=== PATIENT | male | born 1985 | race Two or more races ===

== ENCOUNTER 2021-11-27 12:53 | Outpatient (REF) | payer OTHER, SELFPAY ==
--- NOTE | ~2021-11-27 | US_ITS ---
EXAMINATION: US RETROPERITONEAL LIMITED (RENAL ONLY) CLINICAL INFORMATION: Left flank pain, dysuria. COMPARISON: None. TECHNIQUE: Routine retroperitoneal ultrasound of the kidneys was performed. FINDINGS: RIGHT KIDNEY: 13.0 x 5.4 x 5.4 cm (SAG x AP x TRV). The kidney is normal in size, contour, and echogenicity. Renal cortical thickness is normal. No calculi or focal parenchymal lesions. No hydronephrosis. LEFT KIDNEY: 13.9 x 5.7 x 5.8 cm (SAG x AP x TRV). The kidney is normal in size, contour, and echogenicity. Renal cortical thickness is normal. No calculi or focal parenchymal lesions. There is mild hydronephrosis of unknown etiology. BLADDER: There are normal bilateral ureteral jets. No bladder wall thickening seen. US/US renal BI IMPRESSION: Mild left hydronephrosis with no etiology found. Normal bilateral ureteral jets seen in the bladder. No echogenic renal calculi or hydronephrosis.
== END 2021-11-27 12:54 | disposition home or self-care (01) ==
LOC: HO.HMGCX 12:53
PROVIDERS: Visit Provider Nurse Practitioner
DX: R30.0 Dysuria (principal); R10.9 Unspecified abdominal pain
CPT/HCPCS: 76775

== ENCOUNTER 2024-10-24 10:31 | Emergency (ER) | payer OTHER, SELFPAY ==
--- NOTE | ~2024-10-24 | CT_ITS ---
CLINICAL HISTORY: RLQ tenderness CT abdomen and pelvis with contrast Comparison: None Findings: The lung bases are clear. The liver is enlarged at 23 cm and mildly low in attenuation. The gallbladder is unremarkable. The spleen, splenule, adrenal glands and pancreas are within normal limits. Kidneys exhibit mild fullness of the collecting systems bilaterally and of the left extrarenal pelvis. There is no urinary calculus identified. The bladder is significantly distended. The prostate gland is not significantly enlarged. Normal appendix. No bowel obstruction or free air. Extensive diverticulosis. No convincing evidence of diverticulitis. No acute osseous finding. Impression: Diverticulosis without diverticulitis. Normal appendix. No definite acute process. Hepatic steatosis and hepatomegaly. The fullness in the renal collecting systems likely relates to the significantly distended bladder. This document has been electronically signed by: Domenico Carbone MD on 10/24/2024 13:50:15
[2024-10-24 10:42] VITALS: BP 161/102; PULSE 112; RESP 18; TEMP 36.8; O2SAT 96; BMI 31.5
[2024-10-24 11:12] LABS: Basophils Absolute Auto 0.1 X10*3/uL (0.0-0.2); Basophils Percent Auto 0.9 % (0-2); Eosinophils Absolute Auto 0.6 X10*3/uL (0.0-0.4); Eosinophils Percent Auto 7.6 % (0-4); Hematocrit 46.3 % (42.0-52.0); Hemoglobin 16.6 g/dl (14.0-18.0); Imm Gran Abs Auto 0.04 X10*3/uL (0.00-0.03); Imm Gran Pct Auto 0.5 % (0.0-0.4); Lymphocytes Absolute Auto 2.4 X10*3/uL (1.2-4.9); Lymphocytes Percent Auto 31.5 % (20-40); MANUAL DIFF FLAG NO; Mean Corpuscular HGB Conc 35.9 g/dl (31.0-36.0); Mean Corpuscular Hemoglobin 31.1 pg (27.0-33.0); Mean Corpuscular Volume 86.9 fL (80.0-98.0); Mean Platelet Volume 9.8 fL (9.4-12.4); Monocytes Absolute Auto 0.4 X10*3/uL (0.1-1.2); Monocytes Percent Auto 5.7 % (2-11); Neutrophils Absolute Auto 4.1 x10*3/uL (2.0-8.3); Neutrophils Percent Auto 53.8 % (45-73); Platelet Count 215 X10*3/uL (160-400); Red Blood Count 5.33 X10*6/uL (4.60-5.80); Red Cell Distribution Width 11.2 % (11.0-16.0); White Blood Count 7.6 X10*3/uL (4.8-10.8)
[2024-10-24 11:14] LABS: Appearance Urine Clear; Color Urine Yellow; Glucose Urine UA >=1000 mg/dL (Negative); Leukocyte Esterase Urine Negative (Negative); Nitrite Urine Negative (Negative); PH 5.5 (5.0-9.0); Specific Gravity - Urine 1.025 (1.005-1.025); UMIC TRIGGER UACC YES; Urine Blood Negative (Negative); Urine Ketones Negative (Negative); Urine Protein 30 (1+) mg/dL (Neg-Trace)
--- NOTE | 2024-10-24 11:15 | ED.GENADULT ---
HPI - General Adult General Chief complaint: Abdominal Pain Stated complaint: abd pain Time Seen by Provider: 10/24/24 11:13 Source: patient, RN notes reviewed and old records reviewed Mode of arrival: ambulatory Limitations: no limitations History of Present Illness ED Provider: [facility] narrative: Patient is a 39-year-old male with history of HTN, did not take BP med this am, presenting to the ED with complaint of colicky right lower quadrant abdominal pain for the past week. States at times pain radiates to back, and left lower quadrant of abdomen. Has had a few episodes of nonbloody, nonbilious vomiting. Denies diarrhea or constipation. Does report some difficulty urinating at times, has not noted any hematuria. Subjective fevers. MD complaint: abdominal pain Onset (ago): week(s) Location: abdomen Radiation: back Severity: severe Pain Consistency: colicky Associated symptoms: nausea/vomiting Related Data Previous Rx's ?Medication ?Instructions ?Recorded sennosides 8.6 mg-docusate sodium 1 tab-cap PO BEDTIME #14 tabs 10/24/24 50 mg tablet Allergies Allergy/AdvReac Type Severity Reaction Status Date / Time No Known Allergies Allergy Verified 10/24/24 10:44 Review of Systems Review of Systems: As per HPI Yes all other systems are reviewed and are negative Constitutional: Constitutional: Reports as per HPI [facility] Social History Social History Advance Directives: No Advance Directives Information Provided: Yes Physical Exam ED Vital Signs: Vital Signs - 24 hr 10/24/24 10:42 10/24/24 12:22 Temperature 98.3 F Pulse Rate 112 H Respiratory Rate 18 18 Blood Pressure 161/102 H Pulse Oximetry 96 Oxygen Delivery Method Room Air BMI result Body Mass Index 31.5 Vital signs have been reviewed and appear to be correct. Blood pressure elevated. Heart rate mildly tachycardic. Respiratory rate normal. Temperature normal. Oxygen saturation normal. Const General: cooperative, healthy appearing and no acute distress Orientation/consciousness: oriented to person, oriented to place, oriented to time and patient oriented x3 Limitations: no limitations HENMT Head: Yes normocephalic and Yes atraumatic Ears: external ears normal General nose exam: Normal external nose present Face and sinus: Yes face symmetric Mouth: oropharynx normal and moist mucous membranes Throat: Yes uvula midline Eyes Pupils: Equal, round and reactive pupils present Neck Neck: Yes normal visual inspection and Yes supple Resp Effort & Inspection: normal respiratory effort and able to speak in complete sentences Auscultation: clear to auscultation bilaterally Cardio Rate: regular rate Rhythm: regular rhythm Heart sounds: S1 normal heart sound present and S2 normal heart sound present GI Palpation (GI): Soft to palpation and nontender Auscultation: normoactive bowel sounds General: Yes no CVA tenderness Back/Spine/Pelvis Back: no CVA tenderness Skin General skin exam: elasticity normal and turgor normal Neuro General: oriented to person, oriented to place, oriented to time, patient oriented x3, moves all extremities, no focal motor deficits and CN's II-XI intact bilaterally Cranial nerves: Yes Equal, round and reactive pupils present Cognition (Neuro): normal cognition Extrem General: Yes full ROM, Yes no pedal edema and Yes no calf tenderness Psych Mental Status: mental status grossly normal Affect: normal affect Thought process: Normal thought process present Medications Administered Discontinued Medications Generic Name Dose Route Start Last Admin Trade Name Juanq PRN Reason Stop Dose Admin Sodium Chloride 1,000 mls @ 999 mls/hr 10/24/24 11:30 10/24/24 13:20 Ns IV 10/24/24 12:30 Infused .Q1H1M MONIQUE Infusion Iohexol 100 ml 10/24/24 12:39 10/24/24 12:39 Iohexol 350 Mg/Ml 100 Ml Infus..Btl IV 10/24/24 12:40 85 ml ONCE ONE Administration Morphine Sulfate 4 mg 10/24/24 11:30 10/24/24 12:22 Morphine Sulfate 4 Mg/Ml Cartridge IVPUSH 10/24/24 11:31 4 mg ONCE ONE Administration Protocol Ondansetron HCl 4 mg 10/24/24 11:30 10/24/24 12:23 Ondansetron Hcl 4 Mg/2 Ml Vial IVPUSH 10/24/24 11:31 4 mg ONCE ONE Administration Medical Decision Making Medical Decision Making MDM Narrative: Patient is a 39-year-old male with history of HTN, did not take BP med this am, presenting to the ED with complaint of colicky right lower quadrant abdominal pain for the past week. On exam patient is awake, A+Ox3, BP elevated, did not take BP med today, slightly tachycardic, VS otherwise WNL, afebrile, normal neurological exam without focal deficits, physical exam findings as above. Given reported symptoms and physical exam findings, initial differential includes but is not limited to appendicitis, UTI/pyelonephritis, obstructing calculi, hydronephrosis. Labs notable for no leukocytosis, no anemia, hyperglycemia without anion gap, elevated transaminases with normal Tbili. Urinalysis is without evidence of infection, no blood noted. CT notable for diverticulosis without diverticulitis, fullness in renal collecting system and distended bladder. My interpretation is in agreement with the radiologist's interpretation. Bladder scan obtained pre and post void, patient does not appear to be retaining urine. Moderate amount of stool noted, will send prescription for docu-senna. Follow up with PCP. Return precautions discussed at bedside. Patient verbalized understanding of and agreement with plan. Differential Diagnosis Differential Diagnoses: The differential diagnosis associated with the presentation includes as per [facility] Admission/Observation Consideration of admission/observation: Escalation of care including admission/observation considered Patient would have been admitted to the hospital had their work up had any findings where hospital admission was appropriate and their clinical presentation warranted hospital admission. Lab Data [facility] Lab Attestation statement: I reviewed the patient's lab results. as per [facility] 10/24/24 11:01 10/24/24 11:01 Labs: Lab Results 10/24/24 Range/Units 11:01 WBC 7.6 (4.8-10.8) X10*3/uL RBC 5.33 (4.60-5.80) X10*6/uL Hgb 16.6 (14.0-18.0) g/dl Hct 46.3 (42.0-52.0) % MCV 86.9 (80.0-98.0) fL MCH 31.1 (27.0-33.0) pg MCHC 35.9 (31.0-36.0) g/dl RDW 11.2 (11.0-16.0) % Plt Count 215 (160-400) X10*3/uL MPV 9.8 (9.4-12.4) fL Immature Gran % (Auto) 0.5 H (0.0-0.4) % Neut % (Auto) 53.8 (45-73) % Lymph % (Auto) 31.5 (20-40) % [place] % (Auto) 5.7 (2-11) % Eos % (Auto) 7.6 H (0-4) % Baso % (Auto) 0.9 (0-2) % Lymph # (Auto) 2.4 (1.2-4.9) X10*3/uL [place] # (Auto) 0.4 (0.1-1.2) X10*3/uL Eos # (Auto) 0.6 H (0.0-0.4) X10*3/uL Baso # (Auto) 0.1 (0.0-0.2) X10*3/uL Abs Immat Gran (auto) 0.04 H (0.00-0.03) X10*3/uL Absolute Neuts (auto) 4.1 (2.0-8.3) x10*3/uL Absolute Nucleated RBC 0.000 (0.0-0.012) X10*3/uL Nucleated RBC % (auto) 0.0 (0.0-0.2) /100WBC Sodium 135 (135-145) mmol/L Potassium 4.0 (3.3-5.1) mmol/L Chloride 101 (96-108) mmol/L Carbon Dioxide 23 (22-29) mmol/L Anion Gap 15 (12-20) BUN 14 (9-16) mg/dL Creatinine 0.82 (0.5-1.4) mg/dL Estim Creat Clear Calc 123.1 Estimated GFR > 60 Random Glucose 351 H* (60-115) mg/dL Calcium 9.7 (8.4-10.2) mg/dL Magnesium 2.0 (1.6-2.6) mg/dL Total Bilirubin 0.6 (0.0-1.0) mg/dL AST 49 H (5-37) U/L ALT 121 H (0-40) U/L Alkaline Phosphatase 93 (39-117) U/L Total Protein 8.3 H (6.5-8.0) g/dL Albumin 4.5 (3.5-5.0) g/dL Lipase 25 (8-78) U/L Urine Color Yellow Urine Appearance Clear Urine pH 5.5 (5.0-9.0) Ur Specific [place] 1.025 (1.005-1.025) Urine Protein 30 (1+) H (Neg-Trace) mg/dL Urine Glucose (UA) >=1000 H (Negative) mg/dL Urine Ketones Negative (Negative) mg/dL Urine Blood Negative (Negative) Urine Nitrite Negative (Negative) Ur Leukocyte Esterase Negative (Negative) Urine RBC 0-2 (0-2) /HPF Urine WBC 0-5 (0-5) /HPF Ur Squamous Epith Cells 0-2 (0-2) /HPF Urine Bacteria None Seen (None Seen) Hyaline Casts 0-2 (0-2) /LPF Independent Interpretation I performed an independent interpretation of an: CT Scan Interpretation: CT notable for diverticulosis without diverticulitis, fullness in renal collecting system and distended bladder. No evidence of appendicitis or obstructing calculi Radiology Impression Discussion of test interpretation with radiology: I have reviewed the radiologist's reading. Radiologist Impression: CT abdomen and pelvis with contrast Comparison: None Findings: The lung bases are clear. The liver is enlarged at 23 cm and mildly low in attenuation. The gallbladder is unremarkable. The spleen, splenule, adrenal glands and pancreas are within normal limits. Kidneys exhibit mild fullness of the collecting systems bilaterally and of the left extrarenal pelvis. There is no urinary calculus identified. The bladder is significantly distended. The prostate gland is not significantly enlarged. Normal appendix. No bowel obstruction or free air. Extensive diverticulosis. No convincing evidence of diverticulitis. No acute osseous finding. Impression: Diverticulosis without diverticulitis. Normal appendix. No definite acute process. Hepatic steatosis and hepatomegaly. The fullness in the renal collecting systems likely relates to the significantly distended bladder. Independent Historian Clinical information obtained from an independent historian. History obtained from or confirmed by: Other Discharge Plan Discharge Clinical Impression: Constipation, Abdominal pain Patient Disposition: Home, Self-Care Instructions: Constipation (DC), Abdominal Pain (ED) Additional Instructions: You have been evaluated in the emergency department today for abdominal pain. Your evaluation did not show evidence of medical conditions requiring emergent intervention at this time. Your CT scan did show a moderate amount of stool in your colon, you are being prescribed medication for this, take as prescribed. Please schedule an appointment with your primary care physician. Return to the emergency department if you experience worsening or uncontrolled pain, fevers 100.4? F or greater, recurrent vomiting, inability to tolerate food or fluids by mouth, bloody stools or vomit, black or tarry stools, or any other concerning symptoms. Prescriptions: New sennosides-docusate sodium 8.6-50 mg tablet 1 tab-cap PO BEDTIME Qty: 14 0RF Referrals: [facility] [place] [facility] [Provider Group] [facility] [place] Primary Care, Juan Diego [Provider Group] [facility] [place] Primary Care,Erin [Provider Group] [facility] [place] [facility] [Provider Group] Print Language: Monegasque
[2024-10-24 11:17] LABS: Bacteria Urine None Seen (None Seen); Hyaline Casts Urine 0-2 /LPF (0-2); RBC Urine 0-2 /HPF (0-2); Squamous Epithelial Cell Urine 0-2 /HPF (0-2); WBC Urine 0-5 /HPF (0-5)
[2024-10-24 11:34] LABS: Alanine Aminotransferase 121 U/L (0-40); Albumin Level 4.5 g/dL (3.5-5.0); Alkaline Phosphatase 93 U/L (39-117); Anion Gap 15 (12-20); Aspartate Amino Transferase 49 U/L (5-37); Bilirubin Total 0.6 mg/dL (0.0-1.0); Blood Urea Nitrogen 14 mg/dL (9-16); Calcium 9.7 mg/dL (8.4-10.2); Carbon Dioxide 23 mmol/L (22-29); Chloride 101 mmol/L (96-108); Creatinine Clr Calc Pharmacy 123.1; Estimated Glomerular Filt Rate > 60; Glucose Random 351 mg/dL (60-115); Lipase 25 U/L (8-78); Sodium 135 mmol/L (135-145); Total Protein 8.3 g/dL (6.5-8.0)
[2024-10-24] MEDS: 0.9 % Sodium Chloride 1,000 ML 999 ML IV (12:19)
[2024-10-24 12:22] VITALS: RESP 18
[2024-10-24] MEDS: Morphine Sulfate 4 MG/ML CARTRIDGE IVPUSH (12:22)
[2024-10-24] MEDS: ondansetron HCL 4 MG/2 ML VIAL IVPUSH (12:23)
[2024-10-24] MEDS: iohexoL 350 MG/ML 100 ML INFUS..BTL IV (12:39)
[2024-10-24 15:51] VITALS: BP 112/72; PULSE 82; RESP 18; TEMP 36.8; O2SAT 97
== END 2024-10-24 15:52 | disposition home or self-care (01) ==
PROVIDERS: Emergency Provider Emergency Medicine
DX: K59.00 Constipation, unspecified (principal); R10.2 Pelvic and perineal pain; R11.2 Nausea with vomiting, unspecified; Z79.899 Other long term (current) drug therapy
CPT/HCPCS: 36415; 74177; 80053; 81001; 83690; 83735; 85025; 96361; 96374; 96375; 99284; J2270; J2405; Q9967

== ENCOUNTER → 2024-10-24 11:30 | Outpatient (BNV) | payer OTHER, SELFPAY | PROVIDERS: Emergency Provider Emergency Medicine; Visit Provider Radiology Vascular & Interventional Radiology | DX: R10.31 Right lower quadrant pain (principal) | CPT/HCPCS: 74177 ==